=== PATIENT | male | born 1975 | race Caucasian/White ===

== ENCOUNTER → 2017-06-24 14:35 | Outpatient (REF) | payer OTHER, SELFPAY ==
[2017-06-24 18:41] LABS: Basophils # 0.1 K/mm3 (0-0.2); Basophils % 0.6 % (0.1-2.0); Eosinophils # 0.2 K/mm3 (0.0-0.4); Eosinophils % 2.5 % (0.1-12.0); Hematocrit 47.2 % (42.0-52.0); Lymphocytes # 2.5 K/mm3 (0.7-4.5); Lymphocytes % 28.2 K/mm3 (10-50); Mean Corpuscular HGB Conc 31.7 g/dL (31.8-35.4); Mean Corpuscular Hemoglobin 29.3 pg (27.0-31.2); Mean Corpuscular Volume 92.4 fl (80-94); Mean Platelet Volume 8.5 fl (7.4-10.4); Monocytes # 0.5 K/mm3 (0.1-1.0); Monocytes % 5.5 % (1.7-9.3); Neutrophils # 5.7 K/mm3 (1.8-7.8); Neutrophils % 63.2 % (37.0-80.0); Platelet Count 319 K/mm3 (142-424); Red Cell Distribution Width 12.7 % (11.5-17.5)
[2017-06-24 19:22] LABS: Alanine Aminotransferase 28 U/L (12-78); Albumin Level 4.3 gm/dL (3.4-5.0); Albumin/Globulin Ratio 1.4 (1.1-1.8); Alkaline Phosphatase 62 U/L (46-116); Anion Gap 14.8 mEq/L (5-15); Aspartate Amino Transferase 17 U/L (15-37); Bilirubin,Total 0.3 mg/dL (0.2-1.0); Blood Urea Nitrogen 20 mg/dL (7-18); Calcium 9.5 mg/dL (8.5-10.1); Carbon Dioxide 24 mmol/L (21.0-32.0); Chloride 105 mmol/L (98-107); Chol/HDL Ratio 5.6 (1-3.5); Cholesterol 288 mg/dL (140-200); Creatinine,Serum 0.83 mg/dL (0.70-1.30); Estimated Glomerular Filt Rate 102 ml/min (>60); Free T4 (Free Thyroxine) 1.03 ng/dl (0.76-1.46); GFR (African American) 123 ML/MIN (>60); Globulin 3.1 gm/dl (1.3-3.2); Glucose 91 mg/dL (74-106); HDL Cholesterol 51 mg/dL (27-67); LDL Cholesterol 181 mg/dL (0-130); Potassium 4.8 mmoL/L (3.5-5.1); Sodium 139 mmol/L (136-145); Thyroid Stimulating Hormone 1.41 uIU/ml (0.358-3.740); Total Protein,Serum 7.4 gm/dL (6.4-8.2); Triglycerides 280 mg/dL (30-200); VLDL Cholesterol 56 mg/dL (0-40)
[2017-06-26 17:41] LABS: PSA, Free 0.07 ng/mL; Prostate Specific Ag 0.9 ng/mL (0.0-4.0)
[2017-06-27 19:01] LABS: Testosterone,Free 6.8 pg/mL (6.8-21.5)
[2017-06-30 06:15] LABS: Testosterone, Total, LC/MS 296.3 ng/dL (264.0-916.0)
== END ==
LOC: LAB 14:35
PROVIDERS: Visit Provider Emergency Medicine
DX: R07.9 Chest pain, unspecified (principal)
CPT/HCPCS: 80053; 80061; 84153; 84154; 84402; 84439; 84443; 85025

== ENCOUNTER → 2017-07-02 10:53 | Outpatient (REF) | payer OTHER, SELFPAY ==
[2017-07-07 12:09] LABS: Testosterone, Total, LC/MS 377.3 ng/dL (264.0-916.0)
== END ==
LOC: LAB 10:53
PROVIDERS: PCP Emergency Medicine; Visit Provider Emergency Medicine
DX: R53.83 Other fatigue (principal)
CPT/HCPCS: 84402